=== PATIENT | male | born 1965 | race African-American/Black ===

== ENCOUNTER 2021-05-09 14:51 | Emergency (ER) | payer BC ==
[~2021-05-09] VITALS: Ht 172.7 cm; Wt 77.1 kg
[~2021-05-09 14:51] MED LIST: AMOXICILLIN 50500 M1 PO; MUCINEX TA600 MG/TA2
[2021-05-09 15:14] VITALS: BP 138/82
== END 2021-05-09 15:50 | disposition home or self-care (01) ==
LOC: ER 14:51
DX: M79.10 Myalgia, unspecified site (principal); E11.9 Type 2 diabetes mellitus without complications; Z20.822 Contact with and (suspected) exposure to COVID-19